=== PATIENT | female | born 1945 | race Caucasian/White ===

== ENCOUNTER 2016-06-22 10:02 | Outpatient (CLI) | payer MEDICARE ==
[2016-06-22 11:00] LABS: #Basophils 0.1 thou/uL (0.0-0.2); #Eosinphils 0.1 thou/uL (0.0-0.7); #Lymphocytes 1.7 thou/uL (1.20-3.40); #Monocytes 0.4 thou/uL (0.11-0.59); #Neutrophils 4.3 thou/uL (1.40-6.50); %Basophils 1.5 % (0.0-1.0); %Eosinophils 1.6 % (0.0-10.0); %Monocytes 6.3 % (0.0-10.0); Hematocrit 42.5 % (36.0-47.0); Mean Platelet Volume 7.1 fL (7.4-10.4); Red Blood Cell (RBC) Count 4.61 mill/uL (4.20-5.40); White Blood Cell (WBC) Count 6.6 thou/uL (4.8-10.8)
[2016-06-22 11:14] LABS: ALT (SGPT) 26 U/L (0-55); AST (SGOT) 21 U/L (5-34); Alkaline Phosphatase 74 U/L (40-150); Anion Gap 14 mmol/L (10-20); BUN (Urea Nitrogen) 15 mg/dL (9.8-20.1); Bilirubin, Total 0.8 mg/dL (0.2-1.2); Calc. Creatinine Clearance 0 mL/min (70-130); Carbon Dioxide 25 mmol/L (23-31); Chloride 108 mmol/L (98-107); Estimated GFR-MDRD 65; Globulin 2.8 g/dL (2.4-3.5); LDL Cholesterol, Calculated 69 mg/dL; Protein, Total 6.7 g/dL (5.8-8.1)
== END 2016-06-22 10:03 | disposition home or self-care (01) ==
LOC: HPCALD 10:02
PROVIDERS: ATTEND Family Medicine
DX: Z11.59 Encounter for screening for other viral diseases (principal); I10 Essential (primary) hypertension
CPT/HCPCS: 36415; 80053; 80061; 84443; 85025; 86803

== ENCOUNTER 2016-06-24 10:19 | Outpatient (CLI) | payer MEDICARE ==
[2016-06-24 11:21] LABS: Digoxin 0.86 ng/mL (0.8-2.0)
== END 2016-06-24 10:20 | disposition home or self-care (01) ==
LOC: HPCALD 10:19
PROVIDERS: ATTEND Family Medicine
DX: R25.3 Fasciculation (principal); G25.2 Other specified forms of tremor; I48.0 Paroxysmal atrial fibrillation
CPT/HCPCS: 36415; 80162; 82607; 83735

== ENCOUNTER 2016-12-28 09:45 | Outpatient (CLI) | payer MEDICARE ==
[2016-12-28 10:52] LABS: Cardiac Risk 3.3 (Less than 4.5)
== END 2016-12-28 09:46 | disposition home or self-care (01) ==
LOC: HPCALD 09:45
PROVIDERS: ATTEND Family Medicine
DX: E78.2 Mixed hyperlipidemia (principal)
CPT/HCPCS: 36415; 80061

== ENCOUNTER 2017-01-05 09:57 | Outpatient (CLI) | payer MEDICARE | END 2017-01-05 09:58 | disposition home or self-care (01) | LOC: BURLAB 09:57 | PROVIDERS: ATTEND Internal Medicine Gastroenterology | DX: R10.84 Generalized abdominal pain (principal) | CPT/HCPCS: 36415; 82565 ==

== ENCOUNTER 2019-04-13 10:07 | Outpatient (CLI) | payer MEDICARE ==
--- NOTE | 2019-04-13 18:36 | RAD ---
LUMBAR SPINE THREE VIEWS: 04/13/19 No acute fracture was seen. Arthritic changes are present in the facet joints, particularly at L4 th rough S1. Minimal anterolisthesis of L4 on L5 appears to be due to that facet disease. The disc space s are normal in height. The SI joints are symmetrical. IMPRESSION: Degenerative changes, particularly in the facet joints, of the lower lumbar spine. POS: HOME
== END 2019-04-13 10:08 | disposition home or self-care (01) ==
LOC: BURRAD 10:07
PROVIDERS: ATTEND Family Medicine
DX: M54.41 Lumbago with sciatica, right side (principal); M47.816 Spondylosis without myelopathy or radiculopathy, lumbar region
CPT/HCPCS: 72100

== ENCOUNTER 2021-03-15 14:40 | Emergency (ER) | payer OTHER, MEDICARE ==
[2021-03-15] MEDS ORDERED: Boostrix 0.5 ML (Tdap) VIAL ONE (15:08)
[2021-03-15] MEDS ORDERED: AMOXicillin 250 MG CAP ONE (15:15)
== END 2021-03-15 15:24 | disposition home or self-care (01) ==
LOC: BURERS 14:40
DX: S61.451A Open bite of right hand, initial encounter (principal); Z23 Encounter for immunization; W54.0XXA Bitten by dog, initial encounter
CPT/HCPCS: 90471; 90715